=== PATIENT | female | born 1940 | race Caucasian/White ===

== ENCOUNTER → 2017-03-09 | Outpatient (CLI) | payer MEDICARE, OTHER ==
[~2017-03-09] MED LIST: ASPI-611 PO; ATOR20TA18 PO; DOXY-124 PO; FLUT16SP12 NS; GARL1CAP12 PO; LISI1TAB45 PO; MAGN200T PO; METF-200 PO; MULT-934 PO; NITR0.4T38 SL; OMEG10002 PO; OMEP20CA81 PO; ZOSTAVAX; [UNRECOGNIZED DRUG - CODE] PO
== END ==
LOC: WC.BC 10:17
DX: Z12.31 Encounter for screening mammogram for malignant neoplasm of breast (principal); N64.59 Other signs and symptoms in breast; Z80.3 Family history of malignant neoplasm of breast
CPT/HCPCS: 77063; G0202